=== PATIENT | female | born 1940 | race Caucasian/White ===

== ENCOUNTER 2017-02-25 22:48 | Inpatient (IN) | payer MEDICARE, OTHER ==
[~2017-02-25] VITALS: Ht 167.6 cm; Wt 72.6 kg
[~2017-02-25 22:48] MED LIST: ASPI325EC; ASPI81CH PO; ASPI81EC PO; Acidophilus La100 GM PO; BENADRYL25 MG PO; CRANBERRY250 MG PO; Cinnamon500 MG PO; Cranberry500 MG PO; DIPH50 PO; ESTR1; ESTR1 PO; EZET10 PO; FAMO20 PO; FERR325 PO; FEXO180 PO; FISH1000 PO; FLAX PO; FLUT.05NI; GARLIC PO; GLUCOSAMINE1000 MG PO; Glucosamine-Ch1 EAC2 PO; HYDACE5 PO; L-LYSINE PO; METO25ER PO; METO50ER PO; MONT10T PO; MULVITA PO; NAPR500 PO; NAPR550 PO; NIAC500 PO; NITR.4SL SL; OMEP20ER PO; OXYACE5T PO; OXYB5 PO; Omeprazole20 M1 PO; POTCIT5; PROBIOTIC ACID1 EAC3 PO; PROG100; PROG100 PO; PSYL5.85P PO; RANI150 PO; ROSU10TA; RXNAPNA550 PO; RXOXYACE PO; SUCR1 PO; TYLENOL ARTHRITIS PO; UBID10 PO; Zofran8 MG PO
[2017-02-25] MEDS ORDERED: MYRBETRIQ25 MG PO (22:59)
[2017-02-25] MEDS ORDERED: AZAT50 PO (23:00)
[2017-02-25 23:27] LABS: BASOPHILS ABSOLUTE AUTO 0.05 K/mm3 (0.00-0.23); BASOPHILS PERCENT AUTO 0 % (0-2); EOSINOPHILS ABSOLUTE AUTO 0.28 K/mm3 (0.00-0.68); EOSINOPHILS PERCENT AUTO 2 % (0-6); Hematocrit 39.1 % (33.0-51.0); Hemoglobin 12.2 g/dL (11.5-16.0); IMMATURE GRAN ABSOLUTE AUTO 0.06 K/mm3 (0.00-0.10); IMMATURE GRAN PERCENT AUTO 0 % (0-1); LYMPHOCYTES ABSOLUTE AUTO 1.47 K/mm3 (0.84-5.20); LYMPHOCYTES PERCENT AUTO 10 % (21-46); MONOCYTES ABSOLUTE AUTO 0.85 K/mm3 (0.16-1.47); MONOCYTES PERCENT AUTO 6 % (4-13); Mean Corpuscular HGB 28.6 pg (26.0-34.0); Mean Corpuscular HGB Conc 31.2 g/dL (31.5-36.5); Mean Corpuscular Volume 92 fL (80-100); Mean Platelet Volume 9.2 fL (9.1-12.4); NEUTROPHILS ABSOLUTE AUTO 12.73 K/mm3 (1.96-9.15); NEUTROPHILS PERCENT AUTO 83 % (41-73); Platelet Count 338 K/mm3 (150-400); RDW Coefficient Variation 14.3 % (11.7-14.2); RDW Standard Deviation 48.2 fL (35.1-46.3); Red Blood Cell Count 4.27 M/mm3 (3.80-5.20); White Blood Cell Count 15.44 K/mm3 (4.00-11.30)
[2017-02-25 23:41] LABS: Alanine Aminotransfer (ALT/SGP 15 U/L (12-78); Albumin, Blood 3.9 g/dL (3.4-5.0); Alk Phos 58 U/L (50-136); Anion Gap 8 mmol/L (6-16); Aspartate Aminotrans (AST/SGOT 13 U/L (12-37); Bilirubin, Total 0.2 mg/dL (0.1-1.0); Blood Urea Nitrogen 15 mg/dL (8-24); Bun/Creatinine Ratio 25.8 (12.0-20.0); CO2, Blood 28 mmol/L (21-32); Calcium, Blood 9.1 mg/dL (8.5-10.1); Chloride, Blood 103 mmol/L (98-108); Creatinine, Blood 0.58 mg/dL (0.40-1.00); Globulin, Blood 3.9 g/dL (2.2-4.0); Glomerular Filtration Rate >60 (60-); Glucose, Blood 141 mg/dL (70-99); Potassium, Blood 3.9 mmol/L (3.5-5.5); Sodium, Blood 139 mmol/L (136-145); Total Protein, Blood 7.8 g/dL (6.4-8.2); Troponin I <0.015 ng/mL (0.000-0.040)
[2017-02-26 01:54] LABS: Source, Urine Clean Catch
[2017-02-26 01:58] LABS: Bilirubin, Urine Neg (Neg); Blood, Urine Neg (Neg); Glucose Qualitative, Urine Neg (Neg); Ketones, Urine Neg (Neg); Leukocyte Esterase, Urine 1+ (Neg); Nitrite, Urine Neg (Neg); Protein, Urine Neg (Neg); Urobilinogen, Urine NORM (Normal)
[2017-02-26 02:04] LABS: Appearance, Urine Clear (Clear); Bacteria Not Seen /hpf; Color, Urine Yellow (P-Yellow); Red Blood Cells, Urine Not Seen /hpf (0-2); Squamous Epithelial Cells Not Seen /hpf (Few); White Blood Cells, Urine Rare /hpf (0-5)
[2017-02-26 08:14] LABS: BASOPHILS ABSOLUTE AUTO 0.03 K/mm3 (0.00-0.23); BASOPHILS PERCENT AUTO 0 % (0-2); EOSINOPHILS ABSOLUTE AUTO 0.14 K/mm3 (0.00-0.68); EOSINOPHILS PERCENT AUTO 2 % (0-6); Hematocrit 34.4 % (33.0-51.0); Hemoglobin 10.5 g/dL (11.5-16.0); IMMATURE GRAN ABSOLUTE AUTO 0.02 K/mm3 (0.00-0.10); IMMATURE GRAN PERCENT AUTO 0 % (0-1); LYMPHOCYTES ABSOLUTE AUTO 1.21 K/mm3 (0.84-5.20); LYMPHOCYTES PERCENT AUTO 15 % (21-46); MONOCYTES ABSOLUTE AUTO 0.52 K/mm3 (0.16-1.47); MONOCYTES PERCENT AUTO 7 % (4-13); Mean Corpuscular HGB 28.2 pg (26.0-34.0); Mean Corpuscular HGB Conc 30.5 g/dL (31.5-36.5); Mean Corpuscular Volume 93 fL (80-100); NEUTROPHILS ABSOLUTE AUTO 6.14 K/mm3 (1.96-9.15); NEUTROPHILS PERCENT AUTO 76 % (41-73); Platelet Count 267 K/mm3 (150-400); RDW Coefficient Variation 14.3 % (11.7-14.2); RDW Standard Deviation 48.2 fL (35.1-46.3); Red Blood Cell Count 3.72 M/mm3 (3.80-5.20); White Blood Cell Count 8.06 K/mm3 (4.00-11.30)
[2017-02-26 08:42] LABS: Albumin, Blood 3.2 g/dL (3.4-5.0); Anion Gap 4 mmol/L (6-16); Blood Urea Nitrogen 12 mg/dL (8-24); Bun/Creatinine Ratio 21.4 (12.0-20.0); CO2, Blood 31 mmol/L (21-32); Calcium, Blood 8.5 mg/dL (8.5-10.1); Chloride, Blood 104 mmol/L (98-108); Creatinine, Blood 0.56 mg/dL (0.40-1.00); Glomerular Filtration Rate >60 (60-); Glucose, Blood 104 mg/dL (70-99); Phosphorus, Blood 2.8 mg/dL (2.5-4.9); Sodium, Blood 139 mmol/L (136-145)
== END 2017-02-27 14:15 | disposition home or self-care (01) | DRG 330 ==
LOC: ER 22:48 → MEDS 02-26 01:49 → SURS 02-26 18:44
PROVIDERS: Emergency Medicine; Family Medicine; Surgery
PROC: 0DB80ZZ Excision of Small Intestine, Open Approach (ICD-10-PCS; principal; 2017-02-26 17:00)
DX: K56.600 Partial intestinal obstruction, unspecified as to cause (principal); K50.90 Crohn's disease, unspecified, without complications; T18.3XXA Foreign body in small intestine, initial encounter; I10 Essential (primary) hypertension; M19.90 Unspecified osteoarthritis, unspecified site; K21.9 Gastro-esophageal reflux disease without esophagitis; E78.5 Hyperlipidemia, unspecified; Z77.22 Contact with and (suspected) exposure to environmental tobacco smoke (acute) (chronic); Z86.718 Personal history of other venous thrombosis and embolism; Z79.82 Long term (current) use of aspirin; Z79.899 Other long term (current) drug therapy; Z88.5 Allergy status to narcotic agent; Z91.09 Other allergy status, other than to drugs and biological substances
CPT/HCPCS: 36415; 74177; 80053; 80069; 81001; 83690; 84484; 85025; 88307; 93005; 93010; 96361; 96374; 96375; 99285; J1100; J1170; J1956; J2250; J2405; J2710; J3010; J7030; J7120; J7500; Q9967

== ENCOUNTER → 2018-10-04 | Outpatient (CLI) | payer MEDICARE, OTHER ==
[~2018-10-04] MED LIST changes: +AZAT50 PO; +MYRBETRIQ25 MG PO
== END | disposition home or self-care (01) ==
LOC: LAB EV 12:00 → LAB SHORT 12:00
DX: N39.41 Urge incontinence (principal)
CPT/HCPCS: 87086

== ENCOUNTER 2019-12-25 05:32 | Day surgery (SDC) | payer MEDICARE, OTHER ==
[~2019-12-25] VITALS: Ht 160 cm; Wt 76.0 kg
[~2019-12-25 05:32] MED LIST changes: +ATOR20 PO; +Aspir 8181 MG PO; +CLOP75 PO; -FLAX PO; +FLAXSEED1000 MG PO; +Flomax0.4 MG PO; +GLUCOSAMINE-CH1 EAC7 PO; -Glucosamine-Ch1 EAC2 PO; +Isosorbide Mono30 MG PO; +MULTI VITAMIN1 EACH PO; -MULVITA PO; +Norco 5-325 Ta1 EACH PO; +ONDA4ODT MM; +PANT40
[2019-12-25] MEDS ORDERED: Prinivil10 MG PO (06:25)
--- NOTE | 2019-12-25 09:15 | NUR ---
9CC AIR REMOVED FROM R WRIST TR BAND. -BLEEDING OR SWELLING. PT AMB TO BATHROOM /C SBA. TOLERATED WELL.
--- NOTE | 2019-12-25 10:22 | NUR ---
R WRIST TR BAND REMOVED /S ANY BLEEDING OR SWELLING. PUNCRTURE AREA CLEANED /C NS. CLOTH DOT DRSG PLACED. R WRIST SPLINT REAPPLIED. IV REMOVED. PT VERBALIZED UNDERSTANDING OR WRITTEN AND VERBAL D/C INST. PT TAKEN OUT OF THE HRT CENTER VIA W/C.
== END 2019-12-25 10:15 | disposition home or self-care (01) ==
LOC: MHTC 05:32
PROC: B2111ZZ Fluoroscopy of Multiple Coronary Arteries using Low Osmolar Contrast (ICD-10-PCS; principal; 2019-12-25)
PROC: B2151ZZ Fluoroscopy of Left Heart using Low Osmolar Contrast (ICD-10-PCS; principal; 2019-12-25)
DX: I25.119 Atherosclerotic heart disease of native coronary artery with unspecified angina pectoris (principal); R94.31 Abnormal electrocardiogram [ECG] [EKG]; I10 Essential (primary) hypertension; E78.5 Hyperlipidemia, unspecified; E78.00 Pure hypercholesterolemia, unspecified; Z79.82 Long term (current) use of aspirin; Z79.02 Long term (current) use of antithrombotics/antiplatelets; Z79.899 Other long term (current) drug therapy; Z88.5 Allergy status to narcotic agent; Z88.8 Allergy status to other drugs, medicaments and biological substances; Z91.040 Latex allergy status
CPT/HCPCS: 93458; 99152; 99153; C1769; C1894; J1644; J2250; J3010; J7030; J7050; Q9967

== ENCOUNTER 2020-01-03 12:20 | Emergency (ER) | payer MEDICARE, OTHER ==
[~2020-01-03] VITALS: Ht 167.6 cm; Wt 75.3 kg
[~2020-01-03 12:20] MED LIST changes: -ATOR20 PO; -Aspir 8181 MG PO; -CLOP75 PO; -Isosorbide Mono30 MG PO; -METO50ER PO; -PANT40
[2020-01-03 13:10] LABS: BASOPHILS ABSOLUTE AUTO 0.09 K/mm3 (0.00-0.23); BASOPHILS PERCENT AUTO 1 % (0-2); EOSINOPHILS PERCENT AUTO 17 % (0-6); IMMATURE GRAN ABSOLUTE AUTO 0.01 K/mm3 (0.00-0.10); IMMATURE GRAN PERCENT AUTO 0 % (0-1); LYMPHOCYTES ABSOLUTE AUTO 0.95 K/mm3 (0.84-5.20); LYMPHOCYTES PERCENT AUTO 15 % (21-46); MONOCYTES ABSOLUTE AUTO 0.48 K/mm3 (0.16-1.47); MONOCYTES PERCENT AUTO 8 % (4-13); Mean Corpuscular HGB 29.1 pg (26.0-34.0); Mean Corpuscular HGB Conc 31.6 g/dL (31.5-36.5); Mean Corpuscular Volume 92 fL (80-100); Mean Platelet Volume 9.9 fL (9.1-12.4); NEUTROPHILS ABSOLUTE AUTO 3.74 K/mm3 (1.96-9.15); NEUTROPHILS PERCENT AUTO 59 % (41-73); Platelet Count 295 K/mm3 (150-400); RDW Coefficient Variation 13.2 % (11.7-14.2); RDW Standard Deviation 44.4 fL (35.1-46.3); Red Blood Cell Count 4.12 M/mm3 (3.80-5.20); White Blood Cell Count 6.37 K/mm3 (4.00-11.30)
[2020-01-03 13:23] LABS: Alanine Aminotransfer (ALT/SGP 196 U/L (12-78); Albumin, Blood 3.5 g/dL (3.4-5.0); Albumin/Globulin Ratio 0.9 (0.8-1.8); Alk Phos 354 U/L (50-136); Anion Gap 5 mmol/L (6-16); Aspartate Aminotrans (AST/SGOT 101 U/L (12-37); Bilirubin, Total 0.4 mg/dL (0.1-1.0); Blood Urea Nitrogen 15 mg/dL (8-24); Bun/Creatinine Ratio 20.2 (12.0-20.0); CO2, Blood 28 mmol/L (21-32); Calcium, Blood 9.3 mg/dL (8.5-10.1); Chloride, Blood 109 mmol/L (98-108); Creatinine, Blood 0.74 mg/dL (0.40-1.00); Globulin, Blood 3.9 g/dL (2.2-4.0); Glomerular Filtration Rate >60 (60-); Glucose, Blood 105 mg/dL (70-99); Potassium, Blood 4.2 mmol/L (3.5-5.5); Sodium, Blood 142 mmol/L (136-145); Total Protein, Blood 7.4 g/dL (6.4-8.2); Troponin I <0.015 ng/mL (0.000-0.040)
[2020-01-03] MEDS ORDERED: PANT40 PO (13:25)
[2020-01-03] MEDS ORDERED: METO100ER PO (13:25)
[2020-01-03] MEDS ORDERED: ISOSORBIDE MONO60 MG PO (13:26)
[2020-01-03] MEDS ORDERED: CLOP75 PO (13:26)
[2020-01-03] MEDS ORDERED: ATOR40TA PO (13:27)
[2020-01-03] MEDS ORDERED: Prinivil10 MG PO (13:29)
[2020-01-03] MEDS ORDERED: Aspir 8181 MG PO (13:30)
== END 2020-01-03 18:29 | disposition home or self-care (01) ==
LOC: ER 12:20
PROVIDERS: Emergency Medicine
DX: R07.9 Chest pain, unspecified (principal); I10 Essential (primary) hypertension; Z79.02 Long term (current) use of antithrombotics/antiplatelets; Z79.82 Long term (current) use of aspirin; Z79.899 Other long term (current) drug therapy; Z88.5 Allergy status to narcotic agent; Z88.8 Allergy status to other drugs, medicaments and biological substances; Z91.040 Latex allergy status
CPT/HCPCS: 71046; 74177; 76705; 80053; 83690; 84484; 85025; 93005; 93010; 99285-25; Q9967

== ENCOUNTER 2021-05-14 08:07 | Day surgery (SDC) | payer MEDICARE ==
[~2021-05-14] VITALS: Ht 167.6 cm; Wt 77.6 kg
[~2021-05-14 08:07] MED LIST changes: +ATOR40TA PO; +Aspir 8181 MG PO; +CLOP75 PO; +ISOSORBIDE MONO PO; +METO100ER PO; +PANT40 PO; +POTCHL20ER PO; +Prinivil10 MG PO
== END 2021-05-14 09:54 | disposition home or self-care (01) ==
LOC: ORSCSDS 08:07
PROVIDERS: Internal Medicine Gastroenterology
PROC: 0DB78ZX Excision of Stomach, Pylorus, Via Natural or Artificial Opening Endoscopic, Diagnostic (ICD-10-PCS; principal; 2021-05-14 09:30)
DX: K21.9 Gastro-esophageal reflux disease without esophagitis (principal); K92.1 Melena; L53.9 Erythematous condition, unspecified; R74.8 Abnormal levels of other serum enzymes; Z79.02 Long term (current) use of antithrombotics/antiplatelets; I25.10 Atherosclerotic heart disease of native coronary artery without angina pectoris; I10 Essential (primary) hypertension; E78.5 Hyperlipidemia, unspecified; Z79.82 Long term (current) use of aspirin; Z79.899 Other long term (current) drug therapy
CPT/HCPCS: 88305; 88341; 88342; J2704; J7120

== ENCOUNTER 2021-05-17 13:34 | Inpatient (IN) | payer MEDICARE ==
[~2021-05-17] VITALS: Ht 167.6 cm; Wt 78.0 kg
[2021-05-17 14:36] LABS: Alanine Aminotransfer (ALT/SGP 37 U/L (12-78); Albumin, Blood 3.3 g/dL (3.4-5.0); Albumin/Globulin Ratio 0.8 (0.8-1.8); Alk Phos 73 U/L (50-136); Anion Gap 4 mmol/L (6-16); Aspartate Aminotrans (AST/SGOT 43 U/L (12-37); Bilirubin, Total 0.4 mg/dL (0.1-1.0); Blood Urea Nitrogen 19 mg/dL (8-24); CO2, Blood 24 mmol/L (21-32); Calcium, Blood 8.6 mg/dL (8.5-10.1); Chloride, Blood 107 mmol/L (98-108); Creatinine, Blood 0.79 mg/dL (0.40-1.00); Globulin, Blood 3.9 g/dL (2.2-4.0); Glomerular Filtration Rate >60 (60-); Glucose, Blood 148 mg/dL (70-99); Potassium, Blood 4.8 mmol/L (3.5-5.5); Sodium, Blood 135 mmol/L (136-145); Total Protein, Blood 7.2 g/dL (6.4-8.2)
[2021-05-17 14:40] LABS: BASOPHILS ABSOLUTE AUTO 0.08 K/mm3 (0.00-0.23); BASOPHILS PERCENT AUTO 2 % (0-2); EOSINOPHILS PERCENT AUTO 4 % (0-6); Hematocrit 37.6 % (33.0-51.0); Hemoglobin 12.3 g/dL (11.5-16.0); IMMATURE GRAN ABSOLUTE AUTO 0.03 K/mm3 (0.00-0.10); IMMATURE GRAN PERCENT AUTO 1 % (0-1); LYMPHOCYTES ABSOLUTE AUTO 1.05 K/mm3 (0.84-5.20); LYMPHOCYTES PERCENT AUTO 20 % (21-46); MONOCYTES PERCENT AUTO 8 % (4-13); Mean Corpuscular HGB 29.8 pg (26.0-34.0); Mean Corpuscular HGB Conc 32.7 g/dL (31.5-36.5); Mean Corpuscular Volume 91 fL (80-100); Mean Platelet Volume 9.6 fL (9.1-12.4); NEUTROPHILS ABSOLUTE AUTO 3.55 K/mm3 (1.96-9.15); NEUTROPHILS PERCENT AUTO 67 % (41-73); Platelet Count 213 K/mm3 (150-400); RDW Coefficient Variation 13.1 % (11.7-14.2); RDW Standard Deviation 43.2 fL (35.1-46.3); Red Blood Cell Count 4.13 M/mm3 (3.80-5.20); White Blood Cell Count 5.31 K/mm3 (4.00-11.30)
[2021-05-17 18:10] LABS: Anti-Xa UFH, PHA Monitoring <0.10 IU/mL; International Normalized Ratio 1.05
--- NOTE | 2021-05-17 18:31 | NUR ---
ARRIVAL TO PCU/CARE ASSUMPTION/SHIFT SUMMARY PATIENT ARRIVED TO PCU AT APPROX 1752. PATIENT TRANSFERED FROM ED [facility] TO PCU BED INDEPENDENTLY. PATIENT IS ALERT AND ORIENTED X4. NEURO IS INTACT. PATIENT ORIENTED TO ROOM, CALL LIGHT, AND HOW OFTEN WE TAKE VITAL SIGNS. THIS RN PROVIDED EDUCATION ON THE HERPAIN DRIP THAT SHE IS RECEIVING. HEPERAIN INFUSING AT 15U/KR/HR. VSS. TELE SR 70S. PATIENT REPORTS NO CHEST PAIN/PRESSURE. STRONG RADIAL AND PEDIS PULSES BILATERALLY. PATIENT LUNG SOUNDS ARE CLEAR BILATERALLY AND REPORTS NO SHORTNESS OF BREATH. PATIENT ABD IS SOFT NONTENDER, AND ACTIVE. PATIENT HAD A BM THIS AM BEFORE COMING TO THE HOSPITAL. PATIENT SKIN IS INTACT. PATIENT REPORTS NO PAIN. PATIENT LIVES AT HOME BY HERSELF AND IS ABLE TO PERFORM ALL HER OWN ADLS. PATIENT USES CALL LIGHT APPROPRIATELY. CALL LIGHT IS WITHIN REACH AND BED IN LOWEST POSITON. WILL CONTINUE TO MONITOR AND PROVIDE CARE UNTIL HAND OFF WITH NEXT SHIFT.
--- NOTE | 2021-05-17 21:01 | NUR ---
CALLED [facility] ANSWERING SERVICE FOR CONSULT.
[2021-05-18 00:27] LABS: BASOPHILS ABSOLUTE AUTO 0.09 K/mm3 (0.00-0.23); BASOPHILS PERCENT AUTO 2 % (0-2); EOSINOPHILS ABSOLUTE AUTO 0.52 K/mm3 (0.00-0.68); EOSINOPHILS PERCENT AUTO 10 % (0-6); Hematocrit 36.5 % (33.0-51.0); Hemoglobin 11.9 g/dL (11.5-16.0); IMMATURE GRAN ABSOLUTE AUTO 0.01 K/mm3 (0.00-0.10); IMMATURE GRAN PERCENT AUTO 0 % (0-1); LYMPHOCYTES ABSOLUTE AUTO 1.89 K/mm3 (0.84-5.20); LYMPHOCYTES PERCENT AUTO 35 % (21-46); MONOCYTES ABSOLUTE AUTO 0.41 K/mm3 (0.16-1.47); MONOCYTES PERCENT AUTO 8 % (4-13); Mean Corpuscular HGB 29.8 pg (26.0-34.0); Mean Corpuscular HGB Conc 32.6 g/dL (31.5-36.5); Mean Corpuscular Volume 92 fL (80-100); Mean Platelet Volume 9.4 fL (9.1-12.4); NEUTROPHILS ABSOLUTE AUTO 2.49 K/mm3 (1.96-9.15); NEUTROPHILS PERCENT AUTO 46 % (41-73); Platelet Count 179 K/mm3 (150-400); RDW Coefficient Variation 13.1 % (11.7-14.2); RDW Standard Deviation 44.1 fL (35.1-46.3); Red Blood Cell Count 3.99 M/mm3 (3.80-5.20); White Blood Cell Count 5.41 K/mm3 (4.00-11.30)
[2021-05-18 00:48] LABS: Albumin, Blood 3.1 g/dL (3.4-5.0); Anion Gap 5 mmol/L (6-16); Blood Urea Nitrogen 17 mg/dL (8-24); CHOL/HDL RATIO 2.1; CO2, Blood 29 mmol/L (21-32); Calcium, Blood 8.9 mg/dL (8.5-10.1); Chloride, Blood 107 mmol/L (98-108); Cholesterol 139 mg/dL (50-200); Creatinine, Blood 0.65 mg/dL (0.40-1.00); Glomerular Filtration Rate >60 (60-); Glucose, Blood 94 mg/dL (70-99); HDL Cholesterol 66 mg/dL (>39); LDL/HDL RATIO 0.9; Low Density Lipoprotein Chol 60 mg/dL (0-110); Magnesium, Blood 2.2 mg/dL (1.6-2.4); Phosphorus, Blood 3.3 mg/dL (2.5-4.9); Potassium, Blood 3.8 mmol/L (3.5-5.5); Sodium, Blood 141 mmol/L (136-145); Triglycerides 65 mg/dL (30-160); Very Low Density Lipoprot Chol 13 mg/dL (6-32)
--- NOTE | 2021-05-18 06:38 | NUR ---
SHIFT SUMMARY PT IS ALERT AND ORIENTED. VITALS ARE STABLE. PT IS ON ROOM AIR WITH SATS >92%. PT DENIES CHEST PAIN OR SOB. HEPARIN GTT IS INFUSING AT RATE OF 13. CONSULT CALLED INTO ANSWERING SERVICE. PT IS ABLE TO AMBULATE TO THE BATHROOM WITH NO PROBLEMS. CALL LIGHT IS WITHIN REACH.
--- NOTE | 2021-05-18 09:59 | NUR ---
CARE ASSUMPTION THIS RN ASSUMED CARE AT 0700 FROM NASRA RN. THIS RN AND NASRA RN CONFIRMED THE HEPARIN INFUSION. HEPARIN INFUSING AT 11U/KG/HR. PATIENT IS ALERT AND ORIENTED X4. NEURO IS INTACT. PERRLA. PATIENT REPORTS SOME NUMBNESS TO HER LOWER EXTREMITIES THAT SHE STATES COMES AND GOES. PATIENT REPORTS NO CHEST PAIN OR PRESSURE. TELE SR 70S. PATIENT HAS STRONG RADIAL AND PEDIS PULSES BILATERALLY. WARME EXTREMITIES. PATIENT LUNG SOUNDS CLEAR. ABD IS SOFT NONTENDER AND ACTIVE. NO SKIN ISSUES NOTED. PATIENT REPORTS NO PAIN OR SHORTNESS OF BREATH. VSS. PATIENT HAD AN ECHO DONE THIS AM. PATIENT IS INDEPENDENT IN ROOM BUT CALLS FOR ASSISTANCE WHEN SHE NEEDS IT. PATIENT CALL LIGHT IS WITHIN REACH AND BED IN LOWEST POSITION. THIS RN PROVIDED THERAPEUTIC COMMUNICATION AND ACTIVE LISTENING. PATIENT UNDERSTANDS THE PLAN OF CARE AT THIS TIME AND HAS NO QUESTIONS OR CONCERNS. WILL CONTINUE TO MONITOR AND PROVIDE CARE.
--- NOTE | 2021-05-18 17:56 | NUR ---
SHIFT SUMMARY NEURO REMAINS INTACT. NO ACUTE CHANGES THIS SHIFT. CARDIOLOGY AND MD BURDEN IN TO SEE PATIENT TODAY, AND THE PLAN IS FOR HERPAIN TO INFUSE FOR 48 HOURS AND THEN PATIENT SHOULD BE ABLE TO GO HOME. NO CHEST PAIN/PRESSURE THIS SHIFT. PATIENT CALLS APPROPRIATELY AND USES CALL LIGHT TO MAKE NEEDS KNOWN. PATIENT IS INDEPENDENT IN ROOM. CALL LIGHT WITHIN REACH AND BED IN LOWEST POSITION.
[2021-05-19 04:40] LABS: BASOPHILS ABSOLUTE AUTO 0.06 K/mm3 (0.00-0.23); BASOPHILS PERCENT AUTO 1 % (0-2); EOSINOPHILS PERCENT AUTO 10 % (0-6); Hematocrit 35.6 % (33.0-51.0); Hemoglobin 11.5 g/dL (11.5-16.0); IMMATURE GRAN ABSOLUTE AUTO 0.01 K/mm3 (0.00-0.10); IMMATURE GRAN PERCENT AUTO 0 % (0-1); LYMPHOCYTES ABSOLUTE AUTO 1.52 K/mm3 (0.84-5.20); LYMPHOCYTES PERCENT AUTO 31 % (21-46); MONOCYTES ABSOLUTE AUTO 0.44 K/mm3 (0.16-1.47); MONOCYTES PERCENT AUTO 9 % (4-13); Mean Corpuscular HGB 29.8 pg (26.0-34.0); Mean Corpuscular HGB Conc 32.3 g/dL (31.5-36.5); Mean Corpuscular Volume 92 fL (80-100); Mean Platelet Volume 9.8 fL (9.1-12.4); NEUTROPHILS ABSOLUTE AUTO 2.44 K/mm3 (1.96-9.15); NEUTROPHILS PERCENT AUTO 49 % (41-73); Platelet Count 168 K/mm3 (150-400); RDW Coefficient Variation 13.2 % (11.7-14.2); RDW Standard Deviation 44.5 fL (35.1-46.3); Red Blood Cell Count 3.86 M/mm3 (3.80-5.20); White Blood Cell Count 4.97 K/mm3 (4.00-11.30)
[2021-05-19 05:07] LABS: Anion Gap 6 mmol/L (6-16); Blood Urea Nitrogen 15 mg/dL (8-24); Bun/Creatinine Ratio 21.8 (12.0-20.0); CO2, Blood 27 mmol/L (21-32); Chloride, Blood 108 mmol/L (98-108); Creatinine, Blood 0.69 mg/dL (0.40-1.00); Glomerular Filtration Rate >60 (60-); Glucose, Blood 100 mg/dL (70-99); Phosphorus, Blood 3.9 mg/dL (2.5-4.9); Sodium, Blood 141 mmol/L (136-145)
--- NOTE | 2021-05-19 06:32 | NUR ---
SHIFT SUMMARY PT IS ALERT AND ORIENTED. THERE HAVE BEEN NO ACUTE CHANGES. VITAL SIGNS ARE STABLE AND SATS ARE ABOVE 92% ON ROOM AIR. PT DENIES CHEST PAIN AND SOB. HEPARIN GTT RATE IS AT 11. PT ABLE TO AMBULATE TO BATHROOM.
[2021-05-19] MEDS ORDERED: RANO500T PO (10:54)
--- NOTE | 2021-05-19 11:29 | NUR ---
DISCHARGE NOTE PT WAS TRANSPORTED BY WHEELCHAIR TO PERSONAL VEHICLE. DISCHARGE INSTRUCTIONS AND PERSONAL BELONGINGS IN PT'S POSSESSION AT TIME OF TRANSPORT. ALL QUESTIONS AND CONCERNS WERE ADDRESSED PRIOR TO TRANSPORT AND PT VERBALIZED UNDERSTANDING OF DISCHARGE INSTRUCTIONS AND WHO TO CONTACT WITH CONCERNS.
== END 2021-05-19 11:17 | disposition home or self-care (01) | DRG 282 ==
LOC: ER 13:34 → MEDS 13:35 → PCU 16:49 → MEDS 17:45 → PCU 17:45 → MEDS 05-18 15:37 → PCU 05-18 15:37 → MEDS 05-18 15:37 → PCU 05-19 11:17
PROVIDERS: Emergency Medicine; ADMIT Family Medicine
DX: I21.4 Non-ST elevation (NSTEMI) myocardial infarction (principal); I25.10 Atherosclerotic heart disease of native coronary artery without angina pectoris; I10 Essential (primary) hypertension; I25.2 Old myocardial infarction; Z90.49 Acquired absence of other specified parts of digestive tract; Z28.21 Immunization not carried out because of patient refusal; Z88.8 Allergy status to other drugs, medicaments and biological substances; Z88.5 Allergy status to narcotic agent; Z91.040 Latex allergy status; Z79.82 Long term (current) use of aspirin; Z79.02 Long term (current) use of antithrombotics/antiplatelets; Z79.899 Other long term (current) drug therapy
CPT/HCPCS: 36415; 71046; 80053; 80061; 80069; 83735; 84484; 85025; 85520; 85610; 93005; 93010; 93306; 96374; 96376; 99285-25; A9270; G0378; J1644

== ENCOUNTER → 2021-08-27 | Outpatient (CLI) | payer MEDICARE ==
[~2021-08-27] MED LIST changes: +RANO500T PO
[2021-08-27 12:50] LABS: International Normalized Ratio 1.08; Prothrombin Time Results 11.3 Sec (9.7-11.5)
[2021-08-27 13:20] LABS: Albumin, Blood 3.1 g/dL (3.4-5.0); Albumin/Globulin Ratio 0.8 (0.8-1.8); Bilirubin, Total 0.4 mg/dL (0.1-1.0); Bun/Creatinine Ratio 18.3 (12.0-20.0); Calcium, Blood 9.1 mg/dL (8.5-10.1); Creatinine, Blood 0.77 mg/dL (0.40-1.00); Globulin, Blood 3.8 g/dL (2.2-4.0); Potassium, Blood 4.6 mmol/L (3.5-5.5); Total Protein, Blood 6.9 g/dL (6.4-8.2)
[2021-08-27 13:34] LABS: BASOPHILS ABSOLUTE AUTO 0.07 K/mm3 (0.00-0.23); BASOPHILS PERCENT AUTO 1 % (0-2); EOSINOPHILS ABSOLUTE AUTO 0.61 K/mm3 (0.00-0.68); EOSINOPHILS PERCENT AUTO 13 % (0-6); IMMATURE GRAN ABSOLUTE AUTO 0.04 K/mm3 (0.00-0.10); IMMATURE GRAN PERCENT AUTO 1 % (0-1); LYMPHOCYTES ABSOLUTE AUTO 1.24 K/mm3 (0.84-5.20); LYMPHOCYTES PERCENT AUTO 26 % (21-46); MONOCYTES ABSOLUTE AUTO 0.46 K/mm3 (0.16-1.47); MONOCYTES PERCENT AUTO 10 % (4-13); Mean Corpuscular HGB 30.3 pg (26.0-34.0); Mean Corpuscular HGB Conc 33.3 g/dL (31.5-36.5); Mean Corpuscular Volume 91 fL (80-100); Mean Platelet Volume 10.1 fL (9.1-12.4); NEUTROPHILS ABSOLUTE AUTO 2.41 K/mm3 (1.96-9.15); NEUTROPHILS PERCENT AUTO 50 % (41-73); Platelet Count 190 K/mm3 (150-400); RDW Standard Deviation 42.9 fL (35.1-46.3); Red Blood Cell Count 3.96 M/mm3 (3.80-5.20); White Blood Cell Count 4.83 K/mm3 (4.00-11.30)
== END ==
LOC: LAB SHORT 10:52
PROVIDERS: Physician Assistant Medical
DX: R74.8 Abnormal levels of other serum enzymes (principal)
CPT/HCPCS: 36415; 80053; 82105; 85025; 85610